=== PATIENT | female | born 1965 | race Caucasian/White ===

== ENCOUNTER 2018-12-18 17:48 | Inpatient (IN) | payer MEDICARE, MEDICAID ==
[~2018-12-18] VITALS: Ht 149.9 cm; Wt 90.3 kg
[2018-12-18 17:50] VITALS: BP 124/89
[2018-12-18] MEDS ORDERED: NEXIUM40 MG PO (18:15)
[2018-12-18] MEDS ORDERED: B12INJ IM (18:15)
[2018-12-18] MEDS ORDERED: ZYRTEC 10 MG TA10 MG PO (18:15)
[2018-12-18 18:16] LABS: ABSOLUTE EOSINOPHILS 0.1 thou/uL (0.0-0.7); ABSOLUTE LYMPHOCYTES 1.8 thou/uL (0.8-5.3); ABSOLUTE MONOCYTES 0.5 thou/uL (0.0-1.2); ABSOLUTE NEUTROPHILS 2.1 thou/uL (1.6-8.1); BASOPHILS 0.8 %; EOSINOPHILS 2.5 %; HEMATOCRIT 34.3 % (37.0-47.0); HEMOGLOBIN 11.6 gm/dL (12.0-15.0); LYMPHOCYTES 39.7 %; MCH 33.6 pg (26.0-34.0); MONOCYTES 10.3 %; MPV 8.4 fl. (7.2-11.1); NUCLEATED RBCS 0 /100WBC; PLATELET COUNT* 237 thou/uL (150-400); POLYS 46.7 %; RBC 3.46 mil/uL (4.20-5.00); RDW-CV 13.2 % (10.5-14.5); WBC 4.4 thou/uL (4.0-11.0)
[2018-12-18] MEDS ORDERED: NEURONTIN 300300 M1 PO (18:16)
[2018-12-18] MEDS ORDERED: SYNTHROID25 MC1 PO (18:16)
[2018-12-18] MEDS ORDERED: FENOFIBRATE48 MG PO (18:16)
[2018-12-18] MEDS ORDERED: MIRALAX17 GM PO (18:17)
[2018-12-18] MEDS ORDERED: CLONAZEPAM 1 MG1 M1 PO (18:17)
[2018-12-18] MEDS ORDERED: GAS-X125 M1 PO (18:17)
[2018-12-18] MEDS ORDERED: EUCERIN ORIGIN250 ML TOP (18:18)
[2018-12-18] MEDS ORDERED: MAPAP325 MG PO (18:19)
[2018-12-18] MEDS ORDERED: EAR DROPS15 ML OTIC (18:19)
[2018-12-18] MEDS ORDERED: OYSTER SHELL C1 EAC6 PO (18:19)
[2018-12-18] MEDS ORDERED: FLONASE 0.05%50 MCG NASAL (18:20)
[2018-12-18] MEDS ORDERED: ATIVAN1 MG PO (18:20)
[2018-12-18] MEDS ORDERED: PROLIA60 MG/1 ML SUBQ (18:20)
[2018-12-18] MEDS ORDERED: MILK OF MA400 MG/5 M PO (18:21)
[2018-12-18] MEDS ORDERED: CALMOSEPTINE OI71 GM TOP (18:21)
[2018-12-18] MEDS ORDERED: CORTAID42 GM TOP (18:22)
[2018-12-18 18:25] LABS: PROTIME 10.6 Seconds (9.20-11.50)
[2018-12-18 18:36] LABS: ANION GAP 7 mmol/L (7-16); BUN 19 mg/dL (7-18); CALCIUM 8.7 mg/dL (8.5-10.1); CHLORIDE 105 mmol/L (98-107); CO2 29 mmol/L (21-32); CREATININE 1.2 mg/dL (0.6-1.3); GLUCOSE 93 mg/dL (70-99); POTASSIUM 3.7 mmol/L (3.5-5.1); SODIUM 141 mmol/L (136-145); TROPONIN-I LEVEL <0.06 ng/mL (<0.06)
[2018-12-18 18:39] LABS: ALBUMIN 3.6 g/dL (3.4-5.0); ALKALINE PHOSPHATASE 70 U/L (46-116); SGOT 29 U/L (15-37); SGPT 34 U/L (30-65); TOTAL BILIRUBIN 0.1 mg/dL (<0.1-1.0); TOTAL PROTEIN 7.7 g/dL (6.4-8.2)
[2018-12-18 22:04] VITALS: BP 124/89
[2018-12-18 23:12] VITALS: BP 159/91
[2018-12-19] VITALS: BP 153/86
[2018-12-19 04:00] VITALS: BP 150/83
[2018-12-19 05:39] LABS: ALBUMIN 3.4 g/dL (3.4-5.0); ALKALINE PHOSPHATASE 63 U/L (46-116); ANION GAP 7 mmol/L (7-16); BUN 17 mg/dL (7-18); CALCIUM 8.5 mg/dL (8.5-10.1); CHLORIDE 106 mmol/L (98-107); CHOLESTEROL 129 mg/dL (<200); CO2 28 mmol/L (21-32); GLUCOSE 86 mg/dL (70-99); HDL CHOLESTEROL 43 mg/dL (>40); LDL CHOLESTEROL 60 mg/dL (<100); SERUM ASSESSMENT Clear; SGOT 25 U/L (15-37); SGPT 33 U/L (30-65); SODIUM 141 mmol/L (136-145); TOTAL BILIRUBIN 0.2 mg/dL (<0.1-1.0); TOTAL PROTEIN 7.3 g/dL (6.4-8.2); TRIGLYCERIDE 132 mg/dL (<150); VLDL 26 mg/dL (<40)
[2018-12-19 07:51] VITALS: BP 125/76
--- NOTE | 2018-12-19 11:30 | EKG ---
[place] [address] ELECTROCARDIOGRAM REPORT Name: RADHA HODGE Room: [address] ADM IN .R.#: [id number] Admission: 12/18/18 Attend Phys: Hiren Herrera MD Discharge: Date of : 63 Report #: [id number] THIS REPORT FOR: //name// [facility] ED Test Date: 2018-12-18 Test Time: 18:21:22 Pat Name: RADHA HODGE Department: Room: [facility] Gender: F [employer]: DAY : 1965 Requested By: Nicho Nuñez Order Number: [id number] MD: Harvey Liu Measurements Intervals [place] Rate: 60 P: OR: 178 QRS: -8 QRSD: 119 T: 27 QT: 430 QTc: 430 Interpretive Statements Atrial-paced rhythm Nonspecific intraventricular conduction delay No previous ECG available for comparison Electronically Signed On 12-19-2018 11:30:06 CDT by Harvey Liu [email or web address] <ELECTRONICALLY SIGNED> By: Harvey Liu MD, [facility] 12/19/18 1130 20 20 Harvey Liu MD, FAC /EPI
[2018-12-19 12:55] VITALS: BP 138/67
--- NOTE | 2018-12-19 16:42 | 2DMMODE ---
[place] [address] 2 D/M-MODE ECHOCARDIOGRAM Name: RADHA HODGE Room: [address] IN [facility]#: [id number] Admission: 12/18/18 Attend Phys: Hiren Herrera, Discharge: Date of : 63 Date of Service: 12/19/18 1642 Report #: [id number] THIS REPORT FOR: //name// APPROVED REPORT Study performed: 12/19/2018 10:49:24 EXAM: Comprehensive 2D, Doppler, and color-flow Echocardiogram Patient Location: In-Patient Room #: 219 Status: routine BSA: 1.86 HR: 61 bpm BP: 138/67 mmHg Rhythm: NSR Other Information Study Quality: Good Indications CVA/TIA Echo Enhancing Agent Indication: Rule out Shunt Agent(s) / Amount(s) Used: Agitated Saline 10 cc 2D Dimensions IVSd: 10.00 (7-11mm) LVDd: 43.00 mm Sinus of Valsalva: 29.00 mm LVPWs: 9.00 mm Ascending Ao: 29.00 (22-36mm) LVDs: 24.00 (25-40mm) IVC: 19.00 mm Volumes Left Atrial Volume (Systole) LA ESV Index: 22.80 mL/m2 Left Ventricle The left ventricle is normal size. There is normal LV segmental wall motion. There is normal left ventricular wall thickness. Left ventricular systolic function is normal. The left ventricular ejection fraction is within the normal range. No left ventricle thrombus noted on this study. LVEF is 55-60%. Grade I - abnormal relaxation pattern. [address] [address] 2 D/M-MODE ECHOCARDIOGRAM Name: RADHA HODGE Room: [address] [place] [facility]#: [id number] Admission: 12/18/18 Attend Phys: Hiren Herrera, Discharge: Date of : 63 Date of Service: 12/19/18 1642 Report #: [id number] Right Ventricle The right ventricle is normal size. The right ventricular systolic function is normal. Pacemaker lead is present in the right ventricle. Atria The left atrium size is normal. Interatrial septum is intact without evidence of ASD or PFO.Negative bubble study. The right atrium size is normal. Aortic Valve The aortic valve is normal in structure. No aortic regurgitation is present. There is no aortic valvular stenosis. Mitral Valve The mitral valve is normal in structure. There is no mitral valve regurgitation noted. No evidence of mitral valve stenosis. Tricuspid Valve The tricuspid valve is normal in structure. Trace tricuspid regurgitation. No pulmonary hypertension. Pulmonic Valve The pulmonary valve is normal in structure. There is no pulmonic valvular regurgitation. Great Vessels The aortic root is normal in size. IVC is normal in size and collapses >50% with inspiration. Pericardium There is no pericardial effusion. <Conclusion> LVEF is 55-60%. There is normal LV segmental wall motion. There is no aortic valvular stenosis. No aortic regurgitation is present. No evidence of mitral valve stenosis. There is no mitral valve regurgitation noted. Interatrial septum is intact without evidence of ASD or PFO[place] [address] 2 D/M-MODE ECHOCARDIOGRAM Name: RADHA HODGE Room: [address] [place] .R.#: [id number] Admission: 12/18/18 Attend Phys: Hiren Herrera, Discharge: Date of : 63 Date of Service: 12/19/181641 Report #: [id number] Pacemaker lead is present in the right ventricle. Grade I - abnormal relaxation pattern. <ELECTRONICALLY SIGNED> By: Harvey Liu MD, FACC 12/19/181641 41 41 Harvey Liu MD, FACC /INF
[2018-12-19 20:00] VITALS: BP 121/77
[2018-12-20] VITALS (8 sets, daily range): BP systolic 116–150; BP diastolic 63–77
[2018-12-20 03:07] LABS: GLYCOHEMOGLOBIN (HGB A1C) 5.5 % (4.8-5.6)
[2018-12-20 05:30] LABS: HEMOGLOBIN 11.6 gm/dL (12.0-15.0); MCH 32.6 pg (26.0-34.0); MCHC 33.1 g/dL (28.0-37.0); MCV 98.6 fL (80.0-100.0); RBC 3.55 mil/uL (4.20-5.00); RDW-CV 13.3 % (10.5-14.5); WBC 4.6 thou/uL (4.0-11.0)
[2018-12-20 05:51] LABS: ALBUMIN 3.6 g/dL (3.4-5.0); CALCIUM 8.9 mg/dL (8.5-10.1); CREATININE 1.1 mg/dL (0.6-1.3); MAGNESIUM 1.8 mg/dL (1.8-2.4); POTASSIUM 4.4 mmol/L (3.5-5.1); TOTAL BILIRUBIN 0.2 mg/dL (<0.1-1.0); TOTAL PROTEIN 7.8 g/dL (6.4-8.2)
[2018-12-21 04:07] VITALS: BP 113/58
[2018-12-21 08:00] VITALS: BP 129/68
[2018-12-21 13:57] LABS: URINE BILIRUBIN NEGATIVE (Negative); URINE BLOOD NEGATIVE (Negative); URINE CLARITY CLEAR; URINE COLOR YELLOW; URINE GLUCOSE-RANDOM NEGATIVE (Negative); URINE KETONES NEGATIVE (Negative); URINE NITRITE-REFLEX NEGATIVE (Negative); URINE PROTEIN NEGATIVE (Negative); URINE UROBILINOGEN 0.2 E.U./dl (0.2-1.0)
[2018-12-21 14:06] LABS: URINE LEUKOCYTES-REFLEX 2+ (Negative)
[2018-12-21 14:07] LABS: SQUAMOUS 0-3 Few /LPF (0-3)
[2018-12-21 14:08] VITALS: BP 123/85
[2018-12-21 14:08] LABS: BACTERIA-REFLEX >30 Many /HPF (None Seen); CASTS None Seen /LPF (None Seen); CRYSTALS None Seen /LPF (None Seen); URINE RBC None Seen /HPF (0-2)
[2018-12-21 16:24] VITALS: BP 166/92
[2018-12-21 19:25] VITALS: BP 96/62
[2018-12-22] VITALS: BP 145/94
[2018-12-22 04:00] VITALS: BP 102/73
[2018-12-22 08:00] VITALS: BP 110/62
[2018-12-22] MEDS ORDERED: ASA5UEC PO (10:03)
[2018-12-22] MEDS ORDERED: CLONAZEPAM 1 MG1 M1 PO (10:03)
[2018-12-22] MEDS ORDERED: MACROBID 100 M100 M1 PO (10:03)
[2018-12-22 11:33] VITALS: BP 102/71
[2018-12-22 17:55] VITALS: BP 116/60
[2018-12-22 21:00] VITALS: BP 116/73
[2018-12-23 04:00] VITALS: BP 127/52
[2018-12-23 08:15] VITALS: BP 113/63
[2018-12-24] VITALS: BP 96/56
[2018-12-24 08:00] VITALS: BP 158/78
[2018-12-24 23:00] VITALS: BP 131/61
[2018-12-25 08:00] VITALS: BP 123/77
[2018-12-25 16:00] VITALS: BP 127/61
[2018-12-25 20:45] VITALS: BP 135/98
[2018-12-26 05:04] LABS: HEMATOCRIT 34.8 % (37.0-47.0); HEMOGLOBIN 11.7 gm/dL (12.0-15.0); MCH 33.1 pg (26.0-34.0); MCHC 33.5 g/dL (28.0-37.0); MCV 98.9 fL (80.0-100.0); RBC 3.52 mil/uL (4.20-5.00); RDW-CV 13.3 % (10.5-14.5); WBC 3.9 thou/uL (4.0-11.0)
[2018-12-26 05:32] LABS: CALCIUM 9.4 mg/dL (8.5-10.1); CREATININE 1.2 mg/dL (0.6-1.3); POTASSIUM 4.1 mmol/L (3.5-5.1)
[2018-12-26 07:50] VITALS: BP 99/55
[2018-12-26] MEDS ORDERED: LIPITOR 20 MG T20 M1 PO (12:11)
[2018-12-26] MEDS ORDERED: ASPIR 8181 MG PO (12:11)
[2018-12-26] MEDS ORDERED: KEFLEX500 M1 PO (12:11)
[2018-12-26] MEDS ORDERED: CLONAZEPAM 0.50.5 M1 PO (12:12)
[2018-12-26 12:51] VITALS: BP 99/55
--- NOTE | 2018-12-27 14:23 | CON ---
[address] [address] CONSULTATION Name: RADHA HODGE Room: [address] IN M.R.#: [id number] Admission: 12/18/18 Attend Phys: Hiren Herrera MD Discharge: 12/26/18 Date of : 63 Report #: [id number] THIS REPORT FOR: //name// CC: Hiren Oshea DATE OF SERVICE: 12/19/2018 HISTORY OF PRESENT ILLNESS: This is a 53-year-old female patient who was evaluated by me because some left facial droop was noticed. I talked to the Emergency Room physician in detail. It would appear that the symptoms were going on for 2-3 days. I have tried to call the legal guardian on the number I had and they said it is a [employer] and I cannot reach them. The patient will not say anything. She will not follow any command. Caregiver is here and she indicates that she usually does not say much and may not follow many commands. She does do something independently, but most of the things require help like going to the bathroom and taking a shower, etc. She does have some trouble with decreased mobility also. This is all going on for a few days. REVIEW OF SYSTEMS: Only from the records as I cannot reach any family. She apparently had a history of seizures, hypothermia, anemia, lower extremity edema, cholecystectomy, chronic pancreatitis, GI bleed, osteoporosis, agitation, urinary incontinence and hypercholesterolemia. That is all the review of system, I can get. PAST MEDICAL HISTORY: Unavailable except this patient is a total care. FAMILY HISTORY: Unavailable. SOCIAL HISTORY: She has a caregiver, but I cannot reach the legal guardian. She did not let me examine her. She will not say anything. She does not follow any command. Ultrasound people are trying to do an ultrasound on her. I cannot tell anything at all. I am not sure how to even evaluate this patient. She does not have any respiratory difficulty. She does not appear to have any dysmorphic features of eyes, ears and face. Her blood pressure is 138/67, pulse is 90, temperature is 96.8. LABORATORY DATA: Indicates a white count of 4.4. Sodium is 141. She did have CT angio, which does not appear to be showing any definite abnormality. A repeat GFR is better than actually before. IMPRESSION: Almost impossible to form in this patient. I will continue to reach the family and see if we can get some more history on this patient. This patient may have had a stroke, but that is 2-3 days old. I do not know whether she has a defibrillator or pacemaker and I would like to talk to the [place], [place] [address] CONSULTATION Name: RADHA HODGE Room: [address] IN .R.#: [id number] Admission: 12/18/18 Attend Phys: Hiren Herrera MD Discharge: 12/26/18 Date of : 63 Report #: [id number] in any event, it is very unlikely that this patient will be able to cooperate with anything including an MRI at this time. RECOMMENDATION: 1. We will workup this patient somewhat further. Hopefully, the patient will become somewhat more cooperative. If she had a stroke, not much can be done at this stage. If there is some alternate diagnosis, then we may have to work her up further. Her TSH, vitamin B12 is okay and we will discuss with the legal guardian how aggressive they want to be. Thank you very much for this referral. <ELECTRONICALLY SIGNED> By: Devan Martínez MD 12/27/18 1423 1419 [id number] Martínez MD /nt
== END 2018-12-26 16:00 | DRG 65 ==
LOC: M.ERS 17:48 → M.2W 19:05 → M.TBA-ER 19:05 → M.2W 21:58 → M.3W 12-22 17:50
PROVIDERS: Emergency Medicine Emergency Medical Services; Family Medicine; Internal Medicine; ADMIT Internal Medicine
DX: I63.9 Cerebral infarction, unspecified (principal); K86.1 Other chronic pancreatitis; N39.0 Urinary tract infection, site not specified; M81.0 Age-related osteoporosis without current pathological fracture; E78.00 Pure hypercholesterolemia, unspecified; K21.9 Gastro-esophageal reflux disease without esophagitis; I34.0 Nonrheumatic mitral (valve) insufficiency; D64.9 Anemia, unspecified; G80.9 Cerebral palsy, unspecified; Q90.9 Down syndrome, unspecified; Z95.0 Presence of cardiac pacemaker; Z88.8 Allergy status to other drugs, medicaments and biological substances; Z79.899 Other long term (current) drug therapy; Z90.49 Acquired absence of other specified parts of digestive tract; Z87.19 Personal history of other diseases of the digestive system